=== PATIENT | female | born 1980 | race Caucasian/White ===

== ENCOUNTER → 2021-01-25 | Outpatient (CLI) | payer BC ==
[~2021-01-25] MED LIST: CEPH500 PO; MULVITA PO
== END ==
LOC: LAB 08:59 → LAB SHORT 08:59
DX: J02.9 Acute pharyngitis, unspecified (principal)
CPT/HCPCS: 87081

== ENCOUNTER → 2022-10-09 | Outpatient (CLI) | payer BC ==
[2022-10-09 15:20] LABS: Source, Urine Clean Catch
[2022-10-09 17:34] LABS: Appearance, Urine Clear (Clear); Bilirubin, Urine Neg (Neg); Blood, Urine 4+ (Neg); Color, Urine Yellow (P-Yellow); Glucose Qualitative, Urine Neg (Neg); Ketones, Urine Neg (Neg); Leukocyte Esterase, Urine Neg (Neg); Nitrite, Urine Neg (Neg); Protein, Urine 2+ (Neg); Specific Gravity, Urine 1.015 (1.003-1.022); Urobilinogen, Urine NORM (Normal)
[2022-10-09 17:42] LABS: Bacteria Few /hpf; Squamous Epithelial Cells Few /hpf (Few); White Blood Cells, Urine 0-2 /hpf (0-5)
== END | disposition home or self-care (01) ==
LOC: LAB SHORT 15:18 → LAB 15:18
PROVIDERS: Internal Medicine
DX: R30.0 Dysuria (principal)
CPT/HCPCS: 36415; 81001

== ENCOUNTER → 2024-04-18 | Outpatient (CLI) | payer BC ==
[2024-04-18 13:27] LABS: Creatinine Urine 91.5 mg/dL (27.00-270.00); Microalbumin, Urine Quant. 12.2 mg/L (0.000-20.000); Protein, Urine Quantitative 7.1 mg/dL (0.0-11.9); Uric Acid, Urine 39.1 mg/dL (7.5-49.5)
[2024-04-18 13:49] LABS: Phosphorus, Urine 61.9 mg/dL (20.0-60.0)
[2024-04-18 13:55] LABS: Calcium, Urine 20.7 mg/dL (< 17.5); Calcium, Urine Calculation 351.9 mg/24hrs (42.0-353.0)
== END | disposition home or self-care (01) ==
LOC: LAB 06:54 → LAB SHORT 06:54 → LAB FUT 04-17 09:45 → EDSTATUS 04-17 09:45
PROVIDERS: Internal Medicine Nephrology
DX: N18.2 Chronic kidney disease, stage 2 (mild) (principal); D63.1 Anemia in chronic kidney disease; N25.81 Secondary hyperparathyroidism of renal origin; E55.9 Vitamin D deficiency, unspecified; E78.00 Pure hypercholesterolemia, unspecified; D51.8 Other vitamin B12 deficiency anemias; D52.8 Other folate deficiency anemias; D50.9 Iron deficiency anemia, unspecified; R76.9 Abnormal immunological finding in serum, unspecified; R94.5 Abnormal results of liver function studies; R94.6 Abnormal results of thyroid function studies
CPT/HCPCS: 81050; 82043; 82131; 82340; 82570; 83945; 84105; 84133; 84156; 84300; 84560

== ENCOUNTER → 2024-07-28 | Outpatient (CLI) | payer BC ==
[2024-08-04 09:35] LABS: HPV HIGH RISK BY TMA Not Detected; HPV SOURCE Cervical
== END ==
LOC: LAB 08:28 → LAB SHORT 08:28
PROVIDERS: Internal Medicine
DX: Z12.4 Encounter for screening for malignant neoplasm of cervix (principal)
CPT/HCPCS: 87624; G0123